=== PATIENT | male | born 1975 | race Caucasian/White ===

== ENCOUNTER → 2021-07-28 | Outpatient (CLI) | payer MEDICARE, OTHER | LOC: LAB 10:28 | DX: E03.9 Hypothyroidism, unspecified (principal) ==

== ENCOUNTER → 2022-05-24 | Outpatient (CLI) | payer MEDICARE, OTHER | LOC: RAD 08:16 | DX: M19.071 Primary osteoarthritis, right ankle and foot (principal) ==

== ENCOUNTER → 2023-06-27 | Outpatient (CLI) | payer MEDICARE, OTHER | LOC: LAB 10:33 | DX: Z11.52 Encounter for screening for COVID-19 (principal); Z20.822 Contact with and (suspected) exposure to COVID-19 ==

== ENCOUNTER → 2023-09-23 | Outpatient (CLI) | payer MEDICARE, OTHER ==
[2023-09-23 13:15] LABS: BASO # 0.05 K/mm3 (0.02-0.10); EOS # 0.02 K/mm3 (0.04-0.40); EOS % 0.4 % (0.0-4.0); HEMATOCRIT 29.9 % (42.0-52.0); HEMOGLOBIN 9.6 g/dL (13.5-18.0); LYMPH# 1.86 K/mm3 (1.50-4.00); MEAN CELL VOLUME 102 fl (78-100); MEAN CORPUSCULAR HEMOGLOBIN 33 pg (27-31); MEAN CORPUSCULAR HGB CONC 32 g/dL (33-37); MEAN PLATELET VOLUME 10.9 fl (7.4-10.4); MONO # 0.86 K/mm3 (0.20-0.80); NEU # 2.61 K/mm3 (1.40-6.50); PLATELET COUNT 536 K/mm3 (130-400); RED BLOOD COUNT 2.94 M/mm3 (4.20-5.60); RED CELL DISTRIBUTION WIDTH 22.2 % (11.5-14.5); WHITE BLOOD COUNT 5.4 K/mm3 (4.8-10.8)
[2023-09-23 13:16] LABS: ALBUMIN 3.9 g/dL (3.5-5.0)
[2023-09-23 13:18] LABS: CALCIUM 9.3 mg/dL (8.3-10.5)
[2023-09-23 13:19] LABS: TOTAL PROTEIN 7.3 g/dL (6.4-8.3)
[2023-09-23 13:21] LABS: TOTAL BILIRUBIN 0.3 mg/dL (0.2-1.2)
== END ==
LOC: AMSURD 11:01
PROVIDERS: Internal Medicine Hematology & Oncology
DX: C92.00 Acute myeloblastic leukemia, not having achieved remission (principal); D69.6 Thrombocytopenia, unspecified; E79.0 Hyperuricemia without signs of inflammatory arthritis and tophaceous disease; Z86.69 Personal history of other diseases of the nervous system and sense organs

== ENCOUNTER → 2023-09-27 | Outpatient (CLI) | payer MEDICARE, OTHER ==
[~2023-09-27] VITALS: Ht 195.6 cm; Wt 90.0 kg
[2023-09-27 11:36] VITALS: BP 145/45
--- NOTE | 2023-09-27 11:42 | NUR ---
BLOOD DRAWN FROM RED PORT PER FACILITY PROTOCOL. 2 CLEAR PORTS FLUSHED WELL, BLOOD RETURN NOTED. DRESSING REINFORCED. BLOOD TAKEN TO LAB
== END ==
LOC: AMSURD 11:01
DX: C92.00 Acute myeloblastic leukemia, not having achieved remission (principal); D69.6 Thrombocytopenia, unspecified; E79.0 Hyperuricemia without signs of inflammatory arthritis and tophaceous disease; R53.83 Other fatigue; Z86.69 Personal history of other diseases of the nervous system and sense organs

== ENCOUNTER → 2023-12-21 | Outpatient (REF) | payer MEDICARE, OTHER ==
[2023-12-21 10:35] LABS: HEMATOCRIT 26.7 % (42.0-52.0); HEMOGLOBIN 8.8 g/dL (13.5-18.0); MEAN CELL VOLUME 112 fl (78-100); MEAN CORPUSCULAR HEMOGLOBIN 37 pg (27-31); MEAN CORPUSCULAR HGB CONC 33 g/dL (33-37); MEAN PLATELET VOLUME 11.7 fl (7.4-10.4); PLATELET COUNT 88 K/mm3 (130-400); RED BLOOD COUNT 2.39 M/mm3 (4.20-5.60); RED CELL DISTRIBUTION WIDTH 14.5 % (11.5-14.5); WHITE BLOOD COUNT 2.6 K/mm3 (4.8-10.8)
[2023-12-21 10:44] LABS: ALBUMIN 4.1 g/dL (3.5-5.0)
[2023-12-21 10:46] LABS: CALCIUM 9.3 mg/dL (8.3-10.5)
[2023-12-21 10:47] LABS: TOTAL PROTEIN 6.9 g/dL (6.4-8.3)
[2023-12-21 10:49] LABS: TOTAL BILIRUBIN 0.6 mg/dL (0.2-1.2)
[2023-12-21 11:48] LABS: LYMPHOCYTE 12 % (20-51)
[2023-12-21 11:49] LABS: NEUTROPHILS 88 % (42-75)
[2023-12-21 11:52] LABS: HYPOCHROMIA 1+; OVALOCYTES 1+; SCHISTOCYTES 1+
[2023-12-21 11:53] LABS: TEAR DROP CELLS 1+
== END ==
LOC: LAB 09:43
PROVIDERS: Nurse Practitioner
DX: C92.00 Acute myeloblastic leukemia, not having achieved remission (principal)

== ENCOUNTER → 2024-01-26 | Outpatient (CLI) | payer MEDICARE, OTHER | LOC: AMSURD 10:47 | DX: Z85.6 Personal history of leukemia (principal) ==

== ENCOUNTER → 2024-04-06 | Outpatient (CLI) | payer MEDICARE, OTHER ==
[2024-04-06 09:53] LABS: BASO # 0.02 K/mm3 (0.02-0.10); EOS # 0.32 K/mm3 (0.04-0.40); EOS % 8.2 % (0.0-4.0); HEMATOCRIT 39.4 % (42.0-52.0); MEAN CELL VOLUME 110 fl (78-100); MEAN CORPUSCULAR HEMOGLOBIN 36 pg (27-31); MEAN CORPUSCULAR HGB CONC 33 g/dL (33-37); MEAN PLATELET VOLUME 10.2 fl (7.4-10.4); MONO # 0.29 K/mm3 (0.20-0.80); NEU # 1.75 K/mm3 (1.40-6.50); RED BLOOD COUNT 3.58 M/mm3 (4.20-5.60); RED CELL DISTRIBUTION WIDTH 14.6 % (11.5-14.5); WHITE BLOOD COUNT 3.9 K/mm3 (4.8-10.8)
[2024-04-06 10:01] LABS: ALBUMIN 4.2 g/dL (3.5-5.0)
[2024-04-06 10:02] LABS: CALCIUM 9.2 mg/dL (8.3-10.5)
[2024-04-06 10:04] LABS: TOTAL PROTEIN 7.2 g/dL (6.4-8.3)
[2024-04-06 10:05] LABS: TOTAL BILIRUBIN 0.2 mg/dL (0.2-1.2)
[2024-04-06 10:36] LABS: PLATELET COUNT 83 K/mm3 (130-400)
== END ==
LOC: LAB 09:29
PROVIDERS: Student in an Organized Health Care Education/Training Program
DX: C92.01 Acute myeloblastic leukemia, in remission (principal)